=== PATIENT | male | born 1980 ===

== ENCOUNTER 2020-07-28 14:52 | Outpatient (REF) | payer OTHER, SELFPAY ==
[2020-08-02 03:09] LABS: Patient Race White; SARS-CoV-2 RNA Undetected (Undetected); SARS-CoV-2 Specimen Source Nasal
== END 2020-07-28 15:12 ==
LOC: NCHCN 14:52
PROVIDERS: Visit Provider Family Medicine
DX: Z20.828 Contact with and (suspected) exposure to other viral communicable diseases (principal)
CPT/HCPCS: U0003

== ENCOUNTER 2021-07-10 15:44 | Outpatient (REF) | payer OTHER, SELFPAY ==
[2021-07-11 20:02] LABS: COVID-19 RT-PCR UVMMC Result Negative (Negative)
== END 2021-07-10 15:45 | disposition home or self-care (01) ==
LOC: NCHCN 15:44
PROVIDERS: Visit Provider Family Medicine
DX: Z20.822 Contact with and (suspected) exposure to COVID-19 (principal); J06.9 Acute upper respiratory infection, unspecified
CPT/HCPCS: U0003